=== PATIENT | male | born 1990 | race African-American/Black ===

== ENCOUNTER 2016-06-07 05:30 | Day surgery (SDC) | payer OTHER ==
[2016-06-06 11:54] VITALS: BMI 41.3
[~2016-06-07] VITALS: Ht 188 cm; Wt 164.6 kg
[2016-06-07] VITALS (13 sets, daily range): BP systolic 117–176; BP diastolic 63–101; PULSE 79–102; RESP 15–19; Ht 188 cm; Wt 164.6 kg
[~2016-06-07 05:30] MED LIST: BUPIVACAINE 0.5% (SDV) 30 ML INJ INJ ONE; LIDOCAINE 1% (MPF) 30 ML INJ INJ ONE
[2016-06-07] MEDS ORDERED: HYDR-902 PO (06:05)
[2016-06-07] MEDS ORDERED: BUPIVACAINE 0.5% (SDV) 30 ML INJ ONE (07:33)
[2016-06-07] MEDS ORDERED: LIDOCAINE 1% (MPF) 30 ML INJ ONE (07:33)
[2016-06-07] MEDS ORDERED: POLYMYXIN/BACITRACIN 1L IRRIG ONE (07:47)
--- NOTE | 2016-06-07 07:50 | HPN ---
Date/Time of Note Date/Time of Note DATE: 06/07/16 TIME: 07:50 Interval H&P Admission Note Pt. seen H&P reviewed: No system changes KEYLA DENNY DPM Jun 07, 2016 07:50
[2016-06-07] MEDS ORDERED: PROPOFOL 20 ML ONE ×2 (08:00→08:29)
[2016-06-07] MEDS ORDERED: MIDAZOLAM 1 MG/ML 2 ML INJ ONE (08:00)
[2016-06-07] MEDS ORDERED: LIDOCAINE 2% (SDV) 5 ML INJ ONE (08:00)
[2016-06-07] MEDS ORDERED: CEFAZOLIN 1 GM INJ ONE (08:12)
[2016-06-07] MEDS ORDERED: DEXAMETHASONE 4 MG/ML 1 ML INJ ONE (08:25)
[2016-06-07] MEDS ORDERED: ONDANSETRON 4 MG INJ ONE (08:25)
[2016-06-07] MEDS ORDERED: FAMOTIDINE 20 MG INJ ONE (08:25)
[2016-06-07] MEDS ORDERED: FENTAnyl 50 MCG/ML VIAL ONE (08:25)
[2016-06-07] MEDS ORDERED: METOCLOPRAMIDE 10 MG INJ ONE (08:25)
[2016-06-07] MEDS ORDERED: POLYMYXIN/BACITRACIN 1L IRRIG IRR ONE (08:26)
[2016-06-07] MEDS ORDERED: HYDROmorphONE 2 MG/ML SYG ONE (08:31)
[2016-06-07] MEDS ORDERED: OXYCODONE/ACETAMINOPHEN (5/325) TAB PO PRN ×2 (09:00)
[2016-06-07] MEDS ORDERED: HYDROmorphONE (0.2 MG/ML) 10ML SYG IV PRN ×3 (09:00)
[2016-06-07] MEDS ORDERED: DIPHENHYDRAMINE 50 MG INJ IV PRN (09:00)
[2016-06-07] MEDS ORDERED: MEPERIDINE 25 MG INJ IV PRN (09:00)
[2016-06-07] MEDS ORDERED: ONDANSETRON 4 MG INJ IV PRN (09:00)
[2016-06-07] MEDS ORDERED: FENTAnyl 50 MCG/ML VIAL IV PRN ×3 (09:00)
[2016-06-07] MEDS ORDERED: PROCHLORPERAZINE 10 MG INJ IV PRN (09:00)
[2016-06-07] MEDS ORDERED: KETOROLAC 30 MG INJ ONE (09:20)
[2016-06-07] MEDS ORDERED: HYDROCODONE/APAP (10/325) TAB PO PRN (11:00)
--- NOTE | 2016-06-07 17:04 | RADRPT ---
PROCEDURE: Fluoroscopic guidance with x-ray images during right ankle ORIF. CLINICAL INDICATION: Right ankle ORIF. TECHNIQUE: 30 x-ray images were obtained during right ankle ORIF. COMPARISON: None available FINDINGS: 01:55 of fluoroscopy time was utilized during pacemaker insertion. Two x-ray images were obtained d uring the procedure in progress for guidance. Cumulative dose total is not available. Side plate mu ltiple screws were placed. Alignment is satisfactory. Procedure was performed by Dr. Davidson. IMPRESSION: 1. Fluoroscopic guidance with x-ray images obtained for right ankle ORIF. RPTAT: XX .Sp Ferrell MD, Date Time Electronically viewed and signed by .Sp Ferrell MD, on 06/07/2016 17:04 .T/
--- NOTE | 2016-06-09 10:07 | OPR ---
DATE OF OPERATION: 06/07/2016 SURGEON: Nixon Davidson DPM INCIDENT ENGINEER: Hitesh Luna DPM ANESTHESIOLOGIST: Elizabet Almaraz MD ANESTHESIA: General. PREOPERATIVE DIAGNOSIS: Right ankle fracture with rupture of the syndesmosis. POSTOPERATIVE DIAGNOSIS: Right ankle fracture was rupture of the syndesmosis. OPERATION PERFORMED: Syndesmotic repair right ankle with arthrodesis of the syndesmosis. DESCRIPTION OF PROCEDURE: The patient was brought into the operating room, placed on the table in a secure supine position. Cardiac monitoring with a combination of general anesthesia and local ankl e block was administered to the patient. The thigh tourniquet was utilized for this case. The thig h tourniquet was inflated to 350 mmHg after Betadine prep of the right foot and ankle PROCEDURE NUMBER ONE WAS THEN PERFORMED: Arthrodesis with repair of the syndesmotic diastasis at the right ankle. A 5 cm incision was placed just anterior to the fibula of the right ankle. The in cision was deepened. Superficial bleeders were cauterized and Bovie as necessary. The incision was deepened down through the syndesmotic stasis. The hypertrophic bone was noted denuded from the nicole stasis between the tibia and fibula of the right ankle. Good bleeding bone was noted. The articula r surfaces of the tibia and fibula were fenestrated with a 0.062 K-wire DBM bone graft was utilized to facilitate arthrodesis. A VariAx plate with 3.5 mm x 55 mm and nonlocking screws were inserted x 2 through into the fibula. All four cortices were utilized. Intraoperative guided fluoroscopy was al so utilized during the procedure. Good reduction of the diastasis was noted. The area was copiousl y irrigated with sterile saline mixed with bacitracin solution. The deep subcutaneous tissue was cl osed with 3-0 Vicryl simple interrupted sutures, subcutaneous tissue was closed with 4-0 Vicryl simp le interrupted sutures. The skin edges were reapproximated with simple interrupted 3-0 nylon stitch es. The dressing consisted of Xeroform gauze, 4 x 4 gauze, 4-inch Kerlix roll and 3 inch Coban into a semi-compressive dressing. The patient was placed in a posterior splint and is to remain nonweig htbearing. The thigh pneumatic tourniquet was deflated and immediate hyperemia was noted to all dig its of the right foot upon deflating the thigh tourniquet. No intraoperative complications were enc ountered. Patient tolerated the above procedure well, left the OR with vital signs stable and [employer]. Patient will follow up in 3 day postop. Dictated By: NIXON SAMANIEGO Conf#: [id number] DID#: [id number]
== END 2016-06-07 12:45 | disposition home or self-care (01) ==
LOC: SDS 05:30
PROVIDERS: ATTEND Podiatrist Primary Podiatric Medicine
DX: S93.431A Sprain of tibiofibular ligament of right ankle, initial encounter (principal); X58.XXXA Exposure to other specified factors, initial encounter; Y92.89 Other specified places as the place of occurrence of the external cause; E66.01 Morbid (severe) obesity due to excess calories; Z68.42 Body mass index [BMI] 45.0-49.9, adult
CPT/HCPCS: 27829; 73610; J0690; J1100; J1170; J1885; J2250; J2405; J2765; J3010; Z7512; Z7610